=== PATIENT | female | born 1940 | race Caucasian/White ===

== ENCOUNTER → 2023-08-13 13:06 | Outpatient (CLI) | payer OTHER, MEDICAID, SELFPAY ==
--- NOTE | 2023-08-13 | DI.CT.S_ITS ---
PROCEDURE: CT CHEST HIGH RESOLUTION INDICATIONS: PULM HTN / ESSENTIAL HTN TECHNIQUE: Noncontrast 1.0 and 5.0 mm thick contiguous axial sections from the pulmonary apex to the posterior costophrenic angles, with 7 mm thick coronal and sagittal MIP reformats. 1 mm thick dynamic expiratory images acquired through the upper, mid, and lower lungs. 1.0 mm thick axial sections acquired from the gabo to the posterior costophrenic angles in the prone end-inspiration position. For radiation dose reduction, the following was used: automated exposure control, adjustment of mA and/or kV according to patient size. COMPARISON: None. FINDINGS: Image quality: Good Lungs and pleura: There are areas of basal atelectasis, which partially resolve on prone images. Linear opacities are present in the lingula and middle lobe, persistent on prone images, representing scarring. No dense airspace disease. No pleural effusions or pneumothorax. No significant reticulation. No confluent ground-glass opacities. There are small pulmonary nodules, for example in the periphery of the right lower lobe measuring 5 mm (2/192). Other smaller nodules and possible granulomas are also seen. On expiratory view images, moderate heterogeneous air trapping is present. Mediastinum, heart, and esophagus: Possible small hiatal hernia and nonspecific fluid in the distal esophagus. There is cardiomegaly and coronary calcifications. Prominent pericardial fat. No pathologic lymph nodes by size criteria. Chest wall and thyroid: 1.7 cm isthmus nodule is present. Upper abdomen: There is a left adrenal mass measuring 5.6 cm. Is cholecystectomy clips. Possible, partially seen renal cysts Bones: No acute or suspicious osseous finding. Degenerative changes are seen. IMPRESSION: Incidental 5.6 cm mass in the left adrenal gland. Consider further initial workup with abdominal MRI (although this mass is based in the adrenal, liver protocol is recommended). In the lungs, there is moderate air trapping, indicating chronic small airways disease. No high-grade fibrotic findings. Scarring/atelectasis is present, particularly in the lingula and middle lobe. There also small pulmonary nodules, measuring up to 5 mm. Attention on follow-up is suggested given possible malignancy within the left adrenal. 1.7 cm thyroid isthmus nodule, consider sonographic correlation non urgently. Dictated by: Chun Hinds M.D. on 08/13/2023 at 14:11 Approved by: Chun Hinds M.D. on 08/13/2023 at 14:19
== END ==
PROVIDERS: PCP Physician Assistant Medical; Referring Provider Internal Medicine Cardiovascular Disease; Visit Provider Internal Medicine Cardiovascular Disease
DX: I27.20 Pulmonary hypertension, unspecified (principal); I10 Essential (primary) hypertension; E27.9 Disorder of adrenal gland, unspecified; R91.8 Other nonspecific abnormal finding of lung field; E04.1 Nontoxic single thyroid nodule
CPT/HCPCS: 71250; 94060; 94729

== ENCOUNTER → 2023-08-13 14:34 | Outpatient (CLI) | payer OTHER, MEDICAID, SELFPAY | PROVIDERS: PCP Physician Assistant Medical; Referring Provider Internal Medicine Cardiovascular Disease; Visit Provider Internal Medicine Cardiovascular Disease | DX: I10 Essential (primary) hypertension (principal); I27.20 Pulmonary hypertension, unspecified | CPT/HCPCS: 94060; 94729 ==

== ENCOUNTER → 2023-10-09 08:55 | Outpatient (CLI) | payer OTHER, MEDICAID, SELFPAY ==
--- NOTE | 2023-10-09 08:57 | DI.US.S_ITS ---
PROCEDURE: US THYROID INDICATIONS: NONTOXIC SINGLE THYROID NODULE. H/O ADRENAL NODULES TECHNIQUE: Real-time scanning was performed of the thyroid gland, with image documentation. COMPARISON: None. FINDINGS: Right: Thyroid lobe measures 5.0 x 1.8 x 1.6 cm, and is homogeneous in echotexture. Left: Thyroid lobe measures 4.2 x 1.3 x 1.2 cm, and is homogenous in echotexture. Isthmus: 0.3 cm thick. Nodule number: 1 Location: Isthmus Size: 2.9 x 2.3 x 1.1 cm. Composition: Mixed cystic and solid Echogenicity: Hypoechoic Shape: wider than tall. Margins: Smooth Echogenic foci: None Total points: 3 ACR TI-RADS category: Mildly suspicious category Nodule number: 2 Location: Left thyroid midpole Size: 0.9 x 0.8 x 0.7 cm. Composition: Solid Echogenicity: Isoechoic Shape: wider than tall. Margins: Smooth Echogenic foci: None Total points: 3 ACR TI-RADS category: Mildly suspicious category Nodule number: 3 Location: Left inferior pole Size: 0.6 x 0.5 x 0.4 cm. Composition: Mostly solid Echogenicity: Hypoechoic Shape: wider than tall. Margins: Smooth Echogenic foci: None Total points: 3 ACR TI-RADS category: Mildly suspicious category. IMPRESSION: Three TI-RADS 3 lesions. The largest, at the isthmus, meets size criteria for biopsy. ACR TI-RADS definitions and recommendations: TI-RADS 1 (benign): 0 points. FNA not needed. TI-RADS 2 (not suspicious): 2 points. FNA not needed. TI-RADS 3 (mildly suspicious): 3 points. * FNA if 2.5 cm or larger, follow up if 1.5 cm or larger (at 1, 3, and 5 years). TI-RADS 4 (moderately suspicious): 4-6 points. * FNA if 1.5 cm or larger, follow up if 1 cm or larger (at 1, 2, 3, and 5 years). TI-RADS 5 (highly suspicious): 7 points or more. * FNA if 1 cm or larger, follow up if 0.5 cm or larger (every year for 5 years). Dictated by: Kali Foster M.D. on 10/09/2023 at 13:39 Approved by: Kali Foster M.D. on 10/09/2023 at 13:48
--- NOTE | 2023-10-09 08:57 | DI.MRI.S_ITS ---
PROCEDURE: MR ABDOMEN LIVER PROTOCOL INDICATIONS: adrenal mass Nontoxic single thyroid nodule TECHNIQUE: Coronal HASTE, axial 2D FLASH in- and [id number]; axial breath-hold T2 FSE. Dynamic axial VIBE during the administration of contrast; post-contrast coronal VIBE or 2D FLASH with fat saturation from the hepatic dome to the iliac crests. Optional diffusion weighted imaging and ADC may be performed. COMPARISON: [facility], CT, CT CHEST HIGH RESOLUTION, 08/13/2023, 13:21. FINDINGS: Image quality: There is motion on several sequences limiting the quality of the exam. Most sequences are nondiagnostic and have low spatial resolution. Lung bases: The heart is enlarged. Small hiatal hernia. No pleural effusions. Liver: No gross abnormalities. Gallbladder: Surgically absent. Biliary ducts: No significant biliary dilatation. Pancreas: Not well seen. Spleen: Grossly normal size. Adrenal Glands: A heterogeneous mass measuring about 6.2 cm arises from the left adrenal gland. It demonstrates heterogeneous T1 and T2 signal, nodular enhancement, restricted diffusion, and probably some microscopic fat given probable signal drop on out of phase imaging. No right adrenal mass. Kidneys and Ureters: Each kidney demonstrates a few cortical cysts, 1 in the lower pole of left kidney appears T2 hypointense, likely hemorrhagic. Enhancement cannot be assessed due to artifact. Stomach and Bowel: No obvious bowel dilatation or area of abnormal enhancement. Peritoneum: No abnormal intraperitoneal fluid. No free air. Ventral Wall: No hernia. Abdominal Nodes: Not well seen. Vessels: Aorta and inferior vena cava are normal in size. Bones: No aggressive osseous abnormality. IMPRESSION: 1. 6.2 cm solid, enhancing adrenal mass with restricted diffusion. Although this may be a fat containing lesion, malignant neoplasm is favored. Given its size, resection should be considered, even if a benign neoplasm. 2. Incomplete evaluation of the remainder of the abdomen given motion artifact. Dictated by: Tiffany Gunn M.D. on 10/09/2023 at 13:26 Approved by: Tiffany Gunn M.D. on 10/09/2023 at 13:42
== END ==
LOC: MRI 08:55
PROVIDERS: PCP Physician Assistant Medical; Referring Provider Physician Assistant Medical; Visit Provider Physician Assistant Medical
DX: E27.8 Other specified disorders of adrenal gland (principal); E04.2 Nontoxic multinodular goiter
CPT/HCPCS: 74183; 76536; A9579

== ENCOUNTER → 2023-11-03 13:05 | Outpatient (CLI) | payer OTHER, MEDICAID, SELFPAY ==
--- NOTE | 2023-11-03 13:08 | DI.CT.S_ITS ---
PROCEDURE: CT CHEST WO CON INDICATIONS: Other specified disorders of adrenal gland TECHNIQUE: Noncontrast 5 mm thick sections acquired from the pulmonary apices to the posterior costophrenic angles. 1 mm lung window, 5 mm thick coronal and sagittal and 7 mm axial MIP reformats were then acquired. For radiation dose reduction, the following was used: automated exposure control, adjustment of mA and/or kV according to patient size. COMPARISON: [facility], MR, MR ABDOMEN LIVER PROTOCOL, 10/09/2023, 10:02. [facility], CT, CT CHEST HIGH RESOLUTION, 08/13/2023, 13:21. FINDINGS: Image quality: Diagnostic. Lower Neck: No enlarged lymph nodes. Thyroid: Seen a nodule along the inferior aspect of thyroid isthmus, measuring 1.8 cm. Axillae: No enlarged lymph nodes. Chest Wall: Unremarkable. Bones: Age-appropriate bony degenerative changes are seen. Lungs and Pleura: Mild areas of patchy subpleural opacity can be seen throughout the lungs, although worst inferiorly. Mild areas of scarring or atelectasis can be seen. No pneumothorax or pleural effusions are seen. Heart: Heart size is moderately enlarged. No pericardial effusion. Moderate coronary artery calcification can be seen. Thoracic Vessels: The aorta and pulmonary arteries demonstrate normal size. Mediastinum and [place]: No enlarged lymph nodes. Esophagus: No wall thickening. There is a small hiatal hernia. Upper Abdomen: There is a left adrenal mass seen, measuring 6.4 x 5.6 cm in greatest axial dimension variant on this noncontrast study, this measures 26 Hounsfield units. Cholecystectomy clips are seen. The visualized portions of the upper abdominal structures are otherwise unremarkable for imaging technique. IMPRESSION: There is a 6.4 cm left adrenal mass seen, which has increased in size compared to the 08/13/2023 examination. Areas of subpleural nodular opacity can be seen throughout the lungs, which are worse on the current study than on the prior. Infectious or inflammatory disease would be considered to be most likely. Metastatic disease is possible, yet considered to be less likely based upon the imaging appearance. Thyroid isthmus nodule again seen. Additional findings: Moderate coronary artery calcification Moderate cardiomegaly Small hiatal hernia Cholecystectomy Dictated by: Gregorio Whaley M.D. on 11/03/2023 at 15:12 Approved by: Xochitl JacobsonD. on 11/03/2023 at 15:17
== END ==
LOC: CT 13:06
PROVIDERS: PCP Physician Assistant Medical; Referring Provider Surgery; Visit Provider Surgery
DX: E27.8 Other specified disorders of adrenal gland (principal); E04.1 Nontoxic single thyroid nodule; I25.10 Atherosclerotic heart disease of native coronary artery without angina pectoris; K44.9 Diaphragmatic hernia without obstruction or gangrene; I51.7 Cardiomegaly; R91.8 Other nonspecific abnormal finding of lung field; Z90.49 Acquired absence of other specified parts of digestive tract
CPT/HCPCS: 71250

== ENCOUNTER → 2023-11-04 07:01 | Outpatient (CLI) | payer OTHER, MEDICAID, SELFPAY ==
[2023-11-04 10:33] LABS: BUN Creatinine Ratio 23.3 (6-22); Blood Urea Nitrogen 37 mg/dL (7-17); Calcium 9.2 mg/dL (8.4-10.2); Carbon Dioxide 27 mmol/L (22-32); Chloride 104 mmol/L (98-107); Estimated Glomerular Filt Rate 32 mL/min (>60); Glucose 148 mg/dL (80-110); HEMOLYSIS < 15 (0-50); Potassium 4.7 mmol/L (3.4-5.1); Sodium 137 mmol/L (137-145)
[2023-11-04 11:05] LABS: Cortisol Random 2.67 ug/dL
[2023-11-10 16:34] LABS: Metanephrine,Plasma 13.5 pg/mL (0.0-88.0)
== END ==
PROVIDERS: PCP Physician Assistant Medical; Referring Provider Surgery; Visit Provider Surgery
DX: E27.8 Other specified disorders of adrenal gland (principal)
CPT/HCPCS: 36415; 80048; 82088; 82533; 83835

== ENCOUNTER → 2024-06-02 12:35 | Outpatient (CLI) | payer OTHER, MEDICAID, SELFPAY ==
--- NOTE | 2024-06-02 | PATH_ITS ---
Note [facility] Accession Number: [id number] TESTS RESULT FLAG UNITS REF RANGE LAB Clinician Provided Cytology Information No. of containers..01 Other (Miscellaneous) No. of containers..02 Previously Prepared Cytology Slide Source: ISTHMUS NODULE # 1 DIAGNOSIS: ISTHMUS NODULE # 1 ATYPIA OF UNDETERMINED SIGNIFICANCE. [place] CATEGORY III. ATYPIA OF UNDETERMINED SIGNIFIANCE - NUCLEAR ATYPIA. MOLECULAR STUDIES REQUESTED; RESULTS WILL BE REPORTED SEPARATELY. Pathologist ICD10: R89.6 Signed out by: Meredith Adrian MD, Pathologist NPI- [id number] Performed by: Elzbieta Ba, Solar Mechanical Engineer ([facility]) Gross description: 30 CC, COLORLESS, CLEAR RECIEVED: IN CYTOLYT WITH 6 ALCOHOL FIXED AND 6 QUICK STAINED SLIDES ALSO 1 RNA VIAL WILL ON 10-13-2024.VO /VDU 06/03/2024 114 Local FLAG LEGEND: L-Low Normal,H-High Normal,LL-Alert Low,HH-Alert High <-Panic Low,>-Panic High,A-Abnormal,AA-Critical Abnormal Performed at: 01 [address] [facility], [place] [address] Augustine Galvin MD, Performed at: [address], [place], [place] [id number] MD Augustine Galvin MD Phone: [phone]
--- NOTE | 2024-06-02 12:36 | DI.US.S_ITS ---
PROCEDURE: US FINE NEEDLE ASPIRATION INDICATIONS: THYROID NODULE TECHNIQUE: The indications, alternatives, benefits, risks, and complications of the procedure were explained to the patient. Written informed consent was obtained and placed in the chart. The thyroid region was examined sonographically and a site was chosen for ultrasound guided percutaneous sampling. The skin was prepared and draped in the usual fashion, and anesthetized with 1% lidocaine infiltrated from the skin down to the thyroid gland. Multiple passes were then performed, with contents emptied into an appropriate pathology specimen container. A bandage was applied to the area of access at completion of the study. COMPARISON: None. FINDINGS: Location(s) of lesion(s) sampled: Isthm[place]: 25 gauge hypodermic needles. Number of passes: 6 Medications: 1% lidocaine for local anaesthesia. Complications: None. IMPRESSION: Successful ultrasound-guided thyroid nodule fine needle aspiration, with cytology results pending. Please see chart below for management recommendations based on cytology results. [employer] ReportingRecommendationsNon-diagnostic* Repeat US-guided FNA, with on-site cytology evaluation if possible. * Repeated non-diagnostic nodules without high suspicion US features: close observation vs surgical consult. * Consider surgery if nodule has high suspicion US features, grows >20% in 2 dimensions on followup, or patient has clinical risk factors for malignancy. Benign* If nodule has high suspicion US features: repeat US and FNA within 12 months. * If nodule has low to intermediate suspicion US features: repeat US at 12-24 months. If nodule grows (20% increase in at least 2 dimensions, with minimal increase of 2 mm or >50% change in volume), or development of new suspicious US features, then repeat FNA or continue followup. * If nodule has very low suspicion US features: followup US at >24 months. Atypia of undetermined significance, follicular lesion of undetermined significanceRepeat FNA, molecular testing, followup US, or surgical consult.Follicular neoplasm, suspicious for follicular neoplasmSurgical consult; also consider molecular testing. Suspicious for malignancySurgical consult.MalignantSurgical consult. Dictated by: Lam Carter M.D. on 06/02/2024 at 15:23 Approved by: Lam Carter M.D. on 06/02/2024 at 15:24
== END ==
PROVIDERS: PCP Physician Assistant Medical; Referring Provider Physician Assistant Medical; Visit Provider Physician Assistant Medical
DX: E04.1 Nontoxic single thyroid nodule (principal)
CPT/HCPCS: 10005

== ENCOUNTER → 2024-12-23 11:40 | Outpatient (CLI) | payer OTHER, MEDICAID, SELFPAY ==
--- NOTE | 2024-12-23 11:41 | DI.MG.S_ITS ---
MM screening mammo BI: 12/23/2024. BI-RADS: 2 CLINICAL: 84-year old female for bilateral screening mammogram. Tyrer-Cuzick lifetime risk of 0.3%. No personal or first-degree family history of breast cancer. The patient had a prior right breast biopsy. PRIOR EXAMS 10/21/2017, 03/31/2014. MAMMOGRAPHY TECHNIQUE: 2D and 3D (tomosynthesis) digital mammographic views obtained, with additional images as needed for full coverage. Current study was also evaluated with a Computer Aided Detection (CAD) system. DENSITY C. The breasts are heterogeneously dense, which may obscure small masses. MAMMOGRAPHY FINDINGS Bilateral: Benign-appearing calcifications noted. There are no suspicious masses, calcifications, or other findings in the breast. IMPRESSION: * No evidence of malignancy with benign findings. RECOMMENDATIONS Bilateral * Annual screening mammography. OVERALL ASSESSMENT CATEGORY BI-RADS-2: Benign. The [employer] recommends annual screening mammography beginning at age 40 for women with average risk of breast cancer. ELECTRONICALLY SIGNED: Annemarie Rodriguez M.D. on 12/23/2024 at 12:53:21 PM PT Interpreting Station ID: [id number]
== END ==
PROVIDERS: PCP Physician Assistant Medical; Referring Provider Physician Assistant Medical; Visit Provider Physician Assistant Medical
DX: Z12.31 Encounter for screening mammogram for malignant neoplasm of breast (principal); E04.2 Nontoxic multinodular goiter; E04.1 Nontoxic single thyroid nodule; R92.333 Mammographic heterogeneous density, bilateral breasts; R92.1 Mammographic calcification found on diagnostic imaging of breast
CPT/HCPCS: 77063; 77067

== ENCOUNTER → 2024-12-23 12:27 | Outpatient (CLI) | payer OTHER, MEDICAID, SELFPAY ==
--- NOTE | 2024-12-23 12:28 | DI.US.S_ITS ---
PROCEDURE: US THYROID INDICATIONS: ROUTINE SCREENING/MULTINODULAR GOITER TECHNIQUE: Real-time scanning was performed of the thyroid gland, with image documentation. COMPARISON: [facility], US, US THYROID, 10/09/2023, 9:19. FINDINGS: Thyroid: Right lobe measures 3.8 x 1.5 x 1.3 cm. Left lobe measures 4.6 x 1.4 x 2.0 cm. Isthmus is 4 cm thick. Echotexture is heterogeneous. Multiple subcentimeter thyroid nodules, which do not meet size criteria for follow-up. Nodule number: 1 Location: Isthmus Size: 2.8 x 2.3 x 1.3 cm. Previously 2.9 x 2.3 x 1.1 cm. Composition: Mixed cystic and solid Echogenicity: Hypoechoic Shape: wider than tall. Margins: Smooth Echogenic foci: None Total points: 3 ACR TI-RADS category: 3 IMPRESSION: Stable TI-RADS 3 nodule of the isthmus. This was previously biopsied on 06/02/2024. No significant interval growth to recommend re-biopsy. ACR TI-RADS definitions and recommendations: TI-RADS 1 (benign): 0 points. FNA not needed. TI-RADS 2 (not suspicious): 2 points. FNA not needed. TI-RADS 3: 3 points. * FNA if 2.5 cm or larger, follow up if 1.5 cm or larger (at 1, 3, and 5 years). TI-RADS 4: 4-6 points. * FNA if 1.5 cm or larger, follow up if 1 cm or larger (at 1, 2, 3, and 5 years). TI-RADS 5: 7 points or more. * FNA if 1 cm or larger, follow up if 0.5 cm or larger (every year for 5 years). Dictated by: Kali Foster M.D. on 12/23/2024 at 15:12 Approved by: Kali Foster M.D. on 12/23/2024 at 15:14
== END ==
PROVIDERS: PCP Physician Assistant Medical; Referring Provider Physician Assistant Medical; Visit Provider Physician Assistant Medical
DX: E04.2 Nontoxic multinodular goiter (principal)
CPT/HCPCS: 76536